=== PATIENT | female | born 1990 | race Two or more races ===

== ENCOUNTER 2016-09-28 13:55 | Emergency (ER) | payer MEDICAID ==
[2016-09-28 14:07] VITALS: TEMP 97.9; BMI 24.8
[2016-09-28 14:22] LABS: AUTOMATED BASOPHIL 0.3 % (0-2); AUTOMATED EOSINOPHIL 1.5 % (0-5); AUTOMATED MONOCYTE 4.9 % (3-10); AUTOMATED NEUTROPHIL 67.3 % (45-76)
[2016-09-28 14:39] LABS: BLOOD UREA NITROGEN 10 MG/DL (7-17); CALCIUM 9.1 MG/DL (8.4-10.2); CALCULATED OSMOLALITY 262 MOs/Kg (270-290); CHLORIDE 100 mEq/L (98-107); GLUCOSE 76 MG/DL (70-99); SODIUM LEVEL 137 mEq/L (137-146); TOTAL PROTEIN 7.3 G/DL (6.3-8.2)
--- NOTE | 2016-09-28 17:32 | EDPRACDOC ---
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 PT BELIEVES SHE IS ABOUT 18 WEEKS WITH GOOD CARE. A1. PT STATES A BROWN CLOT WAS PASSED YESTERDAY, FOLLOWED BY A SMALL AMOUNT OF BRIGHT RED BLOOD. THEN TODAY A SMALL AMOUNT ON THE TOILET PAPER. PT DENIES PAIN, FEVER, N/V/D. NO PMH/MEDS. NO APPARENT DISTRESS. Description: Reports: Spontaneous Location: Reports: Internal Vagina Relevant History: Reports: Currently : 4 Para: 2 Total Number of Abortions: 1 Control Method: Reports: None Pain Severity: None Vaginal Bleeding Description: Reports: Dark # Tampons Used in the Last 12/24 Hours: 0 # Pads Used in the Last 12/24 Hours: 0 Associated Signs & Symptoms: Reports: Vaginal Bleeding <Niyah Gamez - Last Filed: 09/28/16 17:27> <Nataly Torres - Last Filed: 09/28/16 18:45> - General Information Chief Complaint: Vaginal Bleeding Stated Complaint: VAGINAL BLEEDING Time Seen by Provider: 09/28/16 16:59 Home Medications: Home Medications Vits W-Ca,Fe,FA(<1Mg) [] 1 each PO DAILY 09/28/16 Allergies/Adverse Reactions: Allergies Allergy/AdvReac Type Severity Reaction Status Date / Time No Known Allergies Allergy Verified 09/28/16 14:06 ED Past Medical History - History Reviewed Yes Nurses notes reviewed and agree except as marked - Patient Medical History GI/ History: Reports: Urinary Tract Infection. Denies: Renal Disease, Renal Failure, Kidney Stones Psychological History: Denies: Depression, Anxiety, Schizophrenia, Bipolar Disorder, Substance Use Disorder Systemic History: Denies: Cancer, Anemia, Lupus Surgical History: Reports: Appendectomy - Family Medical History Reports: Diabetes (MOTHER & FATHER MATERNAL). Denies: Hypertension, Cancer, Stroke, Cardiac Disorders - Social Medical History Social History: Denies: Substance Use Disorder <Niyah Gamez - Last Filed: 09/28/16 17:27> EDM Review of Systems - Review of Systems ROS Negative Except as Marked: Yes All systems reviewed and were negative except as marked Constitutional: No Symptoms Reported Respiratory: No Symptoms Reported Cardiovascular: No Symptoms Reported Gastrointestinal: No Symptoms Reported Genitourinary: Bleeding, Neurological: No Symptoms Reported Musculoskeletal: No Symptoms Reported Integumentary: No Symptoms Reported <Niyah Gamez - Last Filed: 09/28/16 17:27> - Physical Exam Constitutional: Alert (Awake), No apparent distress Oriented to: Time, Person, Place Last recorded Vital Signs: Last Vital Signs Temp 97.9 F 09/28/16 14:06 Pulse 83 09/28/16 14:06 Resp 20 09/28/16 14:06 BP 142/69 09/28/16 14:06 Pulse Ox 99 09/28/16 14:06 Oxygen Pulse Oxygen Saturation 99 O2 Device Oxygen Flow Rate Fraction of Inspired Oxygen ( FIO2) - HEENT Head: Normal Eye Exam: Normal Neck: Normal, Denies Pain, Midline - Respiratory/Cardiovascular Respiratory: Normal - CTA Cardiovascular: Normal - GI Auscultation: Normal Palpation: Normal Tenderness: Non tender - Musculoskeletal Back: Normal Extremities: Normal - Integumentary Skin: Normal Lymphatics: Normal - Neurologic Cerebellar: Normal Mood Description: Normal Thought: Coherent Perception: Normal <Niyah Gamez - Last Filed: 09/28/16 17:27> - Physical Exam Last recorded Vital Signs: Last Vital Signs Temp 97.9 F 09/28/16 14:06 Pulse 80 09/28/16 17:06 Resp 16 09/28/16 17:06 BP 112/60 09/28/16 17:06 Pulse Ox 98 09/28/16 17:06 Oxygen Pulse Oxygen Saturation 98 O2 Device Oxygen Flow Rate Fraction of Inspired Oxygen ( FIO2) <Nataly Torres N - Last Filed: 09/28/16 18:45> ED Vaginal Exam External: Normal Vaginal Exam: Normal Vaginal Lesions: None Vaginal Discharge: None Cervix: Normal Uterus: Normal size Adnexa: Normal <Niyah Gamez - Last Filed: 09/28/16 17:27> ED Procedures - Ultrasound:Limited Abdominal/Renal Indication: Uterus Findings: IUP (FHR 167, EXCELLENT MOVEMENT, FLUID GROSSLY NL) <Nataly Torres N - Last Filed: 09/28/16 18:45> - Results 09/28/16 14:06 09/28/16 14:06 WBC 7.6 xk/uL (3.8-10.8) 09/28/16 14:06 RBC 4.13 xM/uL (4.20-5.40) L 09/28/16 14:06 Hgb 12.3 g/dL (12.0-16.0) 09/28/16 14:06 Hct 36.0 % (36-47) 09/28/16 14:06 MCV 87 fL (81-99) 09/28/16 14:06 MCH 29.8 pg (27-32) 09/28/16 14:06 MCHC 34.1 g/dl (33-36) 09/28/16 14:06 RDW 13.4 % (11.5-14.5) 09/28/16 14:06 Plt Count 183 xk/uL (130-400) 09/28/16 14:06 MPV 9.0 fL (7.4-10.4) 09/28/16 14:06 Neut % (Auto) 67.3 % (45-76) 09/28/16 14:06 Lymph % (Auto) 26.0 % (17-44) 09/28/16 14:06 Benzie % (Auto) 4.9 % (3-10) 09/28/16 14:06 Eos % (Auto) 1.5 % (0-5) 09/28/16 14:06 Baso % (Auto) 0.3 % (0-2) 09/28/16 14:06 Absolute Neuts (auto) 5.09 xk/uL (1.7-8.2) 09/28/16 14:06 Absolute Lymphs (auto) 1.98 xk/uL (0.65-4.75) 09/28/16 14:06 Sodium 137 mEq/L (137-146) 09/28/16 14:06 Potassium 3.5 mEq/L (3.5-5.1) 09/28/16 14:06 Chloride 100 mEq/L (98-107) 09/28/16 14:06 Carbon Dioxide 26 mMOL/L (22-33) 09/28/16 14:06 Anion Gap 15 mEq/L (8-16) 09/28/16 14:06 BUN 10 MG/DL (7-17) 09/28/16 14:06 Creatinine 0.50 MG/DL (0.52-1.04) L 09/28/16 14:06 Estimated GFR (MDRD) > 60 mL/min (>=60) 09/28/16 14:06 Glucose 76 MG/DL (70-99) 09/28/16 14:06 Calculated Osmolality 262 MOs/Kg (270-290) L 09/28/16 14:06 Calcium 9.1 MG/DL (8.4-10.2) 09/28/16 14:06 Total Bilirubin 0.4 MG/DL (0.2-1.3) 09/28/16 14:06 AST 21 IU/L (14-36) 09/28/16 14:06 ALT 29 IU/L (9-52) 09/28/16 14:06 Alkaline Phosphatase 61 IU/L (38-126) 09/28/16 14:06 Total Protein 7.3 G/DL (6.3-8.2) 09/28/16 14:06 Albumin 4.1 G/DL (3.5-5.0) 09/28/16 14:06 Beta HCG, Quant 946154.0 mIU/mL (<5) 09/28/16 14:06 Blood Type O POSITIVE 09/28/16 14:06 Microbiology 09/28/16 17:13 MARY Preparation - Final Vaginal 09/28/16 17:13 Trichomonas Wet Mount - Final Vaginal Lab Results 09/28/16 09/28/16 09/28/16 14:06 14:06 14:06 WBC 7.6 RBC 4.13 L Hgb 12.3 Hct 36.0 MCV 87 MCH 29.8 MCHC 34.1 RDW 13.4 Plt Count 183 MPV 9.0 Neut % (Auto) 67.3 Lymph % (Auto) 26.0 Benzie % (Auto) 4.9 Eos % (Auto) 1.5 Baso % (Auto) 0.3 Absolute Neuts (auto) 5.09 Absolute Lymphs (auto) 1.98 Sodium 137 Potassium 3.5 Chloride 100 Carbon Dioxide 26 Anion Gap 15 BUN 10 Creatinine 0.50 L Estimated GFR (MDRD) > 60 Glucose 76 Calculated Osmolality 262 L Calcium 9.1 Total Bilirubin 0.4 AST 21 ALT 29 Alkaline Phosphatase 61 Total Protein 7.3 Albumin 4.1 Beta HCG, Quant 769453.0 Blood Type O POSITIVE <iNyah Gamez K - Last Filed: 09/28/16 17:27> - Results 09/28/16 14:06 09/28/16 14:06 WBC 7.6 xk/uL (3.8-10.8) 09/28/16 14:06 RBC 4.13 xM/uL (4.20-5.40) L 09/28/16 14:06 Hgb 12.3 g/dL (12.0-16.0) 09/28/16 14:06 Hct 36.0 % (36-47) 09/28/16 14:06 MCV 87 fL (81-99) 09/28/16 14:06 MCH 29.8 pg (27-32) 09/28/16 14:06 MCHC 34.1 g/dl (33-36) 09/28/16 14:06 RDW 13.4 % (11.5-14.5) 09/28/16 14:06 Plt Count 183 xk/uL (130-400) 09/28/16 14:06 MPV 9.0 fL (7.4-10.4) 09/28/16 14:06 Neut % (Auto) 67.3 % (45-76) 09/28/16 14:06 Lymph % (Auto) 26.0 % (17-44) 09/28/16 14:06 Benzie % (Auto) 4.9 % (3-10) 09/28/16 14:06 Eos % (Auto) 1.5 % (0-5) 09/28/16 14:06 Baso % (Auto) 0.3 % (0-2) 09/28/16 14:06 Absolute Neuts (auto) 5.09 xk/uL (1.7-8.2) 09/28/16 14:06 Absolute Lymphs (auto) 1.98 xk/uL (0.65-4.75) 09/28/16 14:06 Sodium 137 mEq/L (137-146) 09/28/16 14:06 Potassium 3.5 mEq/L (3.5-5.1) 09/28/16 14:06 Chloride 100 mEq/L (98-107) 09/28/16 14:06 Carbon Dioxide 26 mMOL/L (22-33) 09/28/16 14:06 Anion Gap 15 mEq/L (8-16) 09/28/16 14:06 BUN 10 MG/DL (7-17) 09/28/16 14:06 Creatinine 0.50 MG/DL (0.52-1.04) L 09/28/16 14:06 Estimated GFR (MDRD) > 60 mL/min (>=60) 09/28/16 14:06 Glucose 76 MG/DL (70-99) 09/28/16 14:06 Calculated Osmolality 262 MOs/Kg (270-290) L 09/28/16 14:06 Calcium 9.1 MG/DL (8.4-10.2) 09/28/16 14:06 Total Bilirubin 0.4 MG/DL (0.2-1.3) 09/28/16 14:06 AST 21 IU/L (14-36) 09/28/16 14:06 ALT 29 IU/L (9-52) 09/28/16 14:06 Alkaline Phosphatase 61 IU/L (38-126) 09/28/16 14:06 Total Protein 7.3 G/DL (6.3-8.2) 09/28/16 14:06 Albumin 4.1 G/DL (3.5-5.0) 09/28/16 14:06 Beta HCG, Quant 386933.0 mIU/mL (<5) 09/28/16 14:06 Blood Type O POSITIVE 09/28/16 14:06 Microbiology 09/28/16 17:13 MARY Preparation - Final Vaginal 09/28/16 17:13 Trichomonas Wet Mount - Final Vaginal Lab Results 09/28/16 09/28/16 09/28/16 14:06 14:06 14:06 WBC 7.6 RBC 4.13 L Hgb 12.3 Hct 36.0 MCV 87 MCH 29.8 MCHC 34.1 RDW 13.4 Plt Count 183 MPV 9.0 Neut % (Auto) 67.3 Lymph % (Auto) 26.0 Benzie % (Auto) 4.9 Eos % (Auto) 1.5 Baso % (Auto) 0.3 Absolute Neuts (auto) 5.09 Absolute Lymphs (auto) 1.98 Sodium 137 Potassium 3.5 Chloride 100 Carbon Dioxide 26 Anion Gap 15 BUN 10 Creatinine 0.50 L Estimated GFR (MDRD) > 60 Glucose 76 Calculated Osmolality 262 L Calcium 9.1 Total Bilirubin 0.4 AST 21 ALT 29 Alkaline Phosphatase 61 Total Protein 7.3 Albumin 4.1 Beta HCG, Quant 234618.0 Blood Type O POSITIVE <Nataly Torres - Last Filed: 09/28/16 18:45> Decision Time to Discharge: 18:08 - Departure Disposition: Home Education/Counseling Given To: Patient Education/Counseling Given Regarding: Diagnosis, Treatment, Follow Up <Niyah Gamez - Last Filed: 09/28/16 17:27> - Departure Yes I personally saw and evaluated the patient. 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 FEEL FREE TO RETURN TO ED FOR ANY WORSE/CONCERNING SYMPTOMS.
[2016-09-28 18:49] VITALS: BP 114/62; PULSE 82
== END 2016-09-28 18:50 | disposition home or self-care (01) ==
LOC: ED 13:55
DX: O20.0 Threatened abortion (principal); Z3A.18 18 weeks gestation of pregnancy
CPT/HCPCS: 36415; 80053; 84702; 85025; 86900; 86901; 87210; 87220; 87491; 87591; 99284